=== PATIENT | male | born 1990 | race Caucasian/White ===

== ENCOUNTER 2019-06-28 19:10 | Emergency (ER) | payer SELFPAY ==
[~2019-06-28] VITALS: Ht 182.9 cm; Wt 79.3 kg
--- NOTE | 2019-06-28 20:19 | NUR ---
PT ARRIVED TO ROOM 38 AMBULATORY. PT C/O "I HAD A HERNIA REPAIR WHEN I WAS A BABY AND I THINK WHATEVER THEY USED TO HOLD MY GUTS IN IS THE ONE THAT HAS ALL THE RECALLS ON IT. I'M JUST WORRIED THAT SOMETHING IS WRONG." PT AAO X 4, VSS, DRESSED IN GOWN AND ATTACHED TO MONITOR. RESTING IN RNEY WITH CALL LIGHT WITHIN REACH AND SIDERAIL X [address]. PT STATES CURRENT SMOKER AND DAILY DRINKER, LAST DRINK WAS 3 HOURS AGO.
--- NOTE | 2019-06-28 20:28 | NUR ---
MD AT BEDSIDE FOR EXAM, NEW ORDERS RECEIVED.
--- NOTE | 2019-06-28 20:36 | NUR ---
PT TO US.
--- NOTE | 2019-06-28 20:53 | NUR ---
REPORT RECEIVED FROM LETTY GORDON.
--- NOTE | 2019-06-28 20:53 | NUR ---
PT BACK FROM US. REPORT GIVEN TO PEG GORDON, CARE TRANSFERRED AT THIS TIME.
[2019-06-28 21:39] VITALS: BP 164/65
[2019-06-28] MEDS ORDERED: HYDROcodone/APAP 5/325 TABLET ONE (21:52)
--- NOTE | 2019-06-28 21:55 | NUR ---
PT MEDICATED PER EMAR FOR PAIN. PT TOLERATED WELL.
--- NOTE | 2019-06-28 21:57 | NUR ---
PT IS NOT ABLE TO PROVIDE URINE SAMPLE AT THIS TIME. URINE CUP IN THE ROOM.
[2019-06-28] MEDS ORDERED: HYDROcodone/APAP 5/325 TABLET PO PRN (22:00)
[2019-06-28 22:18] LABS: ALANINE AMINOTRANSFERASE 29 U/L (12-78); ALBUMIN 4.4 g/dL (3.4-5.0); ANION GAP 10 mmol/L (5-15); CALCIUM 8.9 mg/dL (8.5-10.1); CHLORIDE 108 mmol/L (98-107)
[2019-06-28 22:23] LABS: ALKALINE PHOSPHATASE 94 U/L (45-117); BILIRUBIN,TOTAL 0.2 mg/dL (0.2-1.0); TOTAL PROTEIN 8.5 g/dL (6.4-8.2)
--- NOTE | 2019-06-28 22:24 | NUR ---
PT AMB TO BR AND BACK TO ROOM WITH STEADY GAIT. UA SENT.
[2019-06-28 22:33] LABS: MEAN CORPUSCULAR HGB CONC 32.9 g/dL (33.2-36.2); MEAN CORPUSCULAR VOLUME 103.2 fL (81-97); MEAN PLATELET VOLUME 8.3 fL (7.4-10.4); PLATELET COUNT 243 x10^3/uL (130-400); RED CELL DISTRIBUTION WIDTH 12.6 % (9.4-14.8)
[2019-06-28 22:34] LABS: BASOPHILS # (AUTO) 0.05 x10^3/uL (0-0.1); BASOPHILS % (AUTO) 1 % (0-1); EOSINOPHILS # (AUTO) 0.63 x10^3/uL (0-0.4); EOSINOPHILS % (AUTO) 10 % (1-7); LYMPHOCYTES # (AUTO) 2.09 x10^3/uL (1-3.4); LYMPHOCYTES % (AUTO) 34 % (22-44); MD SCAN; MONOCYTES # (AUTO) 0.46 x10^3/uL (0.2-0.8); MONOCYTES % (AUTO) 8 % (2-9); NEUTROPHILS # (AUTO) 2.88 x10^3/uL (1.8-6.8); NEUTROPHILS % (AUTO) 47 % (42-75)
[2019-06-28 22:38] LABS: MICROSCOPIC NOT IND
[2019-06-28 22:46] LABS: CULTURE INDICATED? NO
--- NOTE | 2019-06-28 23:25 | NUR ---
Patient given discharge instructions and they have confirmed that they understand the instructions. Patient ambulatory with steady gait.
== END 2019-06-28 23:26 | disposition home or self-care (01) ==
LOC: ED 23:15
DX: S39.011A Strain of muscle, fascia and tendon of abdomen, initial encounter (principal); F10.10 Alcohol abuse, uncomplicated; R10.31 Right lower quadrant pain; Z72.9 Problem related to lifestyle, unspecified; X58.XXXA Exposure to other specified factors, initial encounter; Y93.89 Activity, other specified; Y92.89 Other specified places as the place of occurrence of the external cause; Y99.8 Other external cause status
CPT/HCPCS: 36415; 74176; 76857; 80053; 80307; 81003; 85025; 99284